=== PATIENT | female | born 2000 | race Hispanic/Latino ===

== ENCOUNTER 2024-08-08 12:01 | Emergency (ER) | payer SELFPAY ==
--- OUTSIDE RECORDS SUMMARY | 2024-08-08 12:05 | XMS REPORT | Continuity of Care Document ---
Author Name Unknown Address [address] [facility] [address] [place] [address] [facility] thconnect Address [address] [facility] [address] [place] [address] Care Team Providers Care Pathology Secretary/Transcriptionist Name Role Phone PCPNO, NO Primary Care Physician Unavailab LINDSEY Gallo Attending Clinician Unavailabl RICARDO Russell Attending Clinician Unavailable YOLIS HARKINS Attending Clinician Unavailable Lacy Marquez DO Attending Clinician [phone] Yolis Harkins MD Attending Clinician [phone] PONCHO BRITT Attending Clinician Unavailable Poncho Britt NP Attending Clinician [phone] LACY MARQUEZ Admitting Clinician Unavailable Payers Payer Name Policy Type Policy Number Effective Date Expirati on Date Source MANAGED MEDICAID GENERIC NON-CONTRACT [id number] Problems Condition Name Condition Details Condition Category Status Onset Date Resolution Date Last Treatment Date Treating Clinician Comments Source Abdominal pain in female Problem Inactiv e [facility] Fever Problem [facility] Gastroesop hageal reflux disease Problem Inactiv e [facility] Nausea Problem Active [facility] Viral pharyngiti s Problem Inactiv e [facility] Allergies, Adverse Reactions, Alerts Allergy Name Allergy Type Status Severity Reaction(s) Onset Date Inactive Date Treating Clinician Comments Source NO KNOWN ALLERGY Allergy to substanc e Active 2023-08 00:00: 00 [facility] NO KNOWN ALLERGY Allergy to substanc e Active Unknown 03-02 00:00: 00 [facility] NO KNOWN ALLERGIE S Drug Class Active [facility] Social History Social Habit Start Date Stop Date Quantity Comments Source Gender identity [facility] Sexual orientation [facility] History of tobacco use [facility] Sex Assigned At 2002 00:00:00 2000 00:00:00 Female [facility] Smoking Status Start Date Stop Date Source Tobacco smoking consumption unknown [facility] Smokes tobacco daily (finding) 2024-07-05 18:41:00 [facility] Medications Ordered Medication Name Filled Medication Name Start Date Stop Date Current Medication? Ordering Clinician Indication Dosage Frequency Signature (SIG) Comments Components Source Mag Hydrox/Alum inum Hyd/Simeth Liq (Mi-Acid 400-400-40 Mg/10 Ml Liq) 355 Ml ORAL.SUSP 2023-08 20:17: 00 No 30mL 5 Min Before Meals & Bedtime [facility] Al Hydroxide/M g Hydroxide (Maalox Liq, Mylanta Liq) 360 Ml SUSP 03-02 18:22: 00 No 30mL Twice A Day as needed for Pain [facility] cefdinir (OMNICEF) capsule 300 mg 09-21 06:30: 00 09-21 06:37 :00 No 300mg 300 mg, Oral, ONCE, 1 dose, On Tue09/21/23 at 0030, CRUZITO
Re ason for Anti-Infec tive: Documented Infection< br>Documen marlee Infection Site: Urine
D uration of Therapy: Other (see Comments) [facility] cefdinir 300 mg capsule 09-21 00:00: 00 Yes [id number] 300mg Take 1 capsule by mouth every 12 (twelve) hours. [facility] ibuprofen 800 mg tablet 09-21 00:00: 00 Yes [id number] 800mg Take 1 tablet by mouth every 8 (eight) hours as needed for Temp > 38.5 C or Pain (scale 4-6). [facility] ciprofloxac in HCl 0.3 % opthalmic drops 03-08 00:00: 00 Yes [id number] 9104 1[drp] Place 1 Drop in left eye in the morning and 1 Drop at noon and 1 Drop in the evening. [facility] Vital Signs Vital Name Observation Time Observation Value Comments S ource Body Temperature 2024-07-05 20:19:00 97.7 [degF] [facility] Heart Rate 2024-07-05 20:19:00 83 /min [facility] Respiratory rate 2024-07-05 20:19:00 18 /min [facility] BP Systolic 2024-07-05 20:19:00 122 mm[Hg] [facility] BP Diastolic 2024-07-05 20:19:00 41 mm[Hg] [facility] Height 2024-07-05 18:41:00 152.144414 cm [facility] Weight 2024-07-05 18:41:00 40.177187 kg [facility] BMI (Body Mass Index) 2024-07-05 18:41:00 17.6 kg/m2 [facility] Body Temperature 2024-03-02 18:59:00 98.0 [degF] [facility] Heart Rate 2024-03-02 18:59:00 95 /min [facility] Respiratory rate 2024-03-02 18:59:00 18 /min [facility] BP Systolic 2024-03-02 18:59:00 98 mm[Hg] [facility] BP Diastolic 2024-03-02 18:59:00 63 mm[Hg] [facility] BMI (Body Mass Index) 2024-03-02 17:23:00 18.4 kg/m2 [facility] Height 2024-03-02 17:18:00 152.446990 cm TE L Weight 2024-03-02 17:18:00 42.525511 kg [facility] Systolic blood pressure 2023-09-21 06:36:00 98 mm[Hg] [facility] Diastolic blood pressure 2023-09-21 06:36:00 61 mm[Hg] [facility] Heart rate 2023-09-21 06:36:00 111 /min [facility] Body temperature 2023-09-21 06:36:00 37.06 Janneth [facility] Respiratory rate 2023-09-21 06:36:00 16 /min [facility] Oxygen saturation in Arterial blood by Pulse oximetry 2023-09-21 06:36:00 98 /min [facility] Body height 2023-09-21 04:27:00 152.4 cm [facility] Body weight 2023-09-21 04:27:00 47.628 kg [facility] BMI 2023-09-21 04:27:00 20.51 kg/m2 [facility] Systolic blood pressure 2023-03-08 15:09:00 97 mm[Hg] [facility] Diastolic blood pressure 2023-03-08 15:09:00 71 mm[Hg] [facility] Heart rate 2023-03-08 15:09:00 66 /min [facility] Body temperature 2023-03-08 15:09:00 36.72 Janneth [facility] Respiratory rate 2023-03-08 15:09:00 18 /min [facility] Body weight 2023-03-08 15:09:00 47.628 kg [facility] Oxygen saturation in Arterial blood by Pulse oximetry 2023-03-08 15:09:00 99 /min [facility] Procedures Procedure Date / Time Performed Performing Clinicia n Source POCT TEST 2023-09-21 05:15:00 Randell Marquez [facility] URINALYSIS 2023-09-21 04:50:00 Lacy Maruqez [facility] RAPID INFLUENZA A/B 2023-09-21 04:50:00 Randell Marquez [facility] COVID-19 (ID NOW RAPID TESTING) 2023-09-21 04:50:00 Lacy Marquez [facility] NOTICE OF PRIVACY PRACTICES 2023-09-21 04:09:42 Doctor Unassigned, Belva [facility] CONSENT/REFUSAL FOR DIAGNOSIS AND TREATMENT 2023-09-21 04:08:40 Doctor Unassigned, Belva [facility] CONSENT/REFUSAL FOR DIAGNOSIS AND TREATMENT 2023-03-08 15:06:52 Doctor Unassigned, Belva [facility] NOTICE OF PRIVACY PRACTICES 2023-03-08 15:06:18 Doctor Unassigned, Belva [facility] Encounters Start Date/Time End Date/Time Encounter Type Admission Type Attending [facility] Care Department Encounter ID Source 2024-07-05 19:08:00 2024-07-05 20:19:00 Emergency ER [facility]Y [facility] [id number] [facility] 2024-07-05 19:08:00 2024-07-05 20:19:00 Departed Emergency Room [facility] LIVE HCIS [id number] [facility] 2024-03-02 17:34:00 2024-03-02 19:03:00 Emergency ER RICARDO GARCIA [id number] [facility] 2024-03-02 17:34:00 2024-03-02 19:03:00 Departed Emergency Room [facility] LIVE HCIS [id number] [facility] 2023-09-20 22:33:00 2023-09-21 00:56:00 Emergency X YOLIS HARKINS [facility] [id number] [facility] 2023-09-20 22:33:00 2023-09-21 00:56:00 Emergency Lacy Marquez [place] [facility] [id number] [facility] 2023-03-08 10:11:00 2023-03-08 12:53:00 Emergency X PONCHO BRITT [facility] ERT [id number] [facility] 2023-03-08 10:11:00 2023-03-08 12:53:00 Emergency Poncho Britt G [facility] [id number] [facility] Results Test Description Test Time Test Comments Results Result Co mments Source [facility] by [id number] 19:11:00* Test Item Value Reference Range Interpretation Comme nts Urine Color (test code = 24935-7) Yellow Yellow [facility] clarity [id number] 19:11:00* Test Item Value Reference Range Interpretation Comme nts Urine Appearance (test code = 74034-4) Cloudy Clear [facility] pH measurement by automated test [id number] 19:11:00* Test Item Value Reference Range Interpretation Comme nts Urine pH (test code = 34570-6) 6.5 5.0-8.[address] [facility] gravity of Urine by Automated test strip 2024-07-05 19:11:00* Test Item Value Reference Range Interpretation Comme nts Urine Specific Bonita (test code = 28042-2) 1.021 1.005-1.[address] [facility] protein measurement by automated test strip (mass/volume)2024-07-05 19:11:00* Test Item Value Reference Range Interpretation Comme nts Urine Protein (test code = 92325-7) Negative Negative [facility] glucose measurement by automated test strip (mass/volume)2024-07-05 19:11:00* Test Item Value Reference Range Interpretation Comme nts Urine Glucose (UA) (test cod e = 96589-9) Negative Negative [facility] ElizabethKetones [Mass/volume] in Urine by Automated test strip 2024-07-05 19:11:00* Test Item Value Reference Range Interpretation Comme nts Urine Ketones (test code = 38229-4) Negative Negative [facility] erythrocytes count by automated test strip (number/volume)2024-07-05 19:11:00* Test Item Value Reference Range Interpretation Comme nts Urine Occult Blood (test code = 19287-0) Non-Hemolyzed Trace Negative [facility] nitrite detection by automated test [id number] 19:11:00* Test Item Value Reference Range Interpretation Comme nts Urine Nitrite (test code = 80141-9) Negative Negative [facility] total bilirubin measurement by automated test strip (mass/volume)2024-07-05 19:11:00* Test Item Value Reference Range Interpretation Comme nts Urine Bilirubin (test code = 02887-1) Negative Negative [facility] Elizabeth[facility]rine urobilinogen measurement by automated test strip (mass/volume)2024-07-05 19:11:00* Test Item Value Reference Range Interpretation Comme nts Urine Urobilinogen (test cod e = 52326-0) 1.0 0.2-1.[address] [facility] leukocytes count by automated test strip (number/volume)2024-07-05 19:11:00* Test Item Value Reference Range Interpretation Comme nts Urine Leukocyte Esterase (te st code = 99325-1) Negative Negative [facility] ElizabethMicroscopic examination of [id number] 19:11:00* Test Item Value Reference Range Interpretation Comme nts Microscopic Urinalysis (T) ( test code = 89409-7) Not Ind [facility] comment [id number] 19:11:00* Test Item Value Reference Range Interpretation Comme nts Urinalysis Comment (test code = 8262-8) * See_Comment [Automated messa ge] The system which generated this result transmitted reference range: *. The reference range was not used to interpret this result as normal/abnormal. MILTON ArmnetaG ur [id number] 19:11:00* Test Item Value Reference Range Interpretation Commnoris goldsmith Urine Test (test c ode = 2106-3) Negative Negative MILTON ArmentaAutomated erythrocyte mean corpuscular hemoglobin (mass per erythrocyte)2024-03-02 17:36:00* Test Item Value Reference Range Interpretation Commnoris goldsmith Mean Corpuscular Hemoglobin (test code = 785-6) 30.6 27.0-33.0 TELAutomated erythrocyte mean corpuscular hemoglobin concentration measurement (mass/[id number] 17:36:00* Test Item Value Reference Range Interpretation Commnoris [facility] Mean Corpuscular Hemoglobin Concent (test code = 786-4) 34.1 33.0-37.0 TELAutomated erythrocyte distribution width [id number] 17:36:00* Test Item Value Reference Range Interpretation Commnoris [facility] Red Cell Distribution Width (test code = 788-0) 11.9 10.7-14.5 TELAutomated blood platelet count (count/volume)2024-03-02 17:36:00* Test Item Value Reference Range Interpretation Commnoris [facility] Platelet Count (test code = 777-3) 246 150-450 TELAutomated blood platelet mean volume nnbbvrqgluw7123-18-06 17:36:00* Test Item Value Reference Range Interpretation Commnoris [facility] Mean Platelet Volume (test c ode = 19914-1) 10.1 8.5-12.1 TELAutomated blood neutrophil count as percentage of total cymjmywtfi1768-59-00 17:36:00* Test Item Value Reference Range Interpretation Commnoris nts Neutrophils (%) (Auto) (test code = 770-8) 77 47-75 TELAutomated blood immature granulocyte count as percentage of total leukocytes 2024-03-02 17:36:00* Test Item Value Reference Range Interpretation Comme [facility] Immature Granulocyte # (Auto ) (test code = 39165-9) 0.0 0.0-0.0 TELAutomated blood lymphocyte count as percentage of total swzasinbda5802-07-56 17:36:00* Test Item Value Reference Range Interpretation Comme nts Lymphocytes (%) (Auto) (test code = 736-9) 11 25-44 TELAutomated blood monocyte count as percentage of total abxvpxkmnz6943-35-14 17:36:00* Test Item Value Reference Range Interpretation Comme nts Monocytes (%) (Auto) (test c ode = 5905-5) 11 3-10 TELAutomated blood eosinophil count as percentage of total [id number] 17:36:00* Test Item Value Reference Range Interpretation Comme nts Eosinophils (%) (Auto) (test code = 713-8) 1 0-7 TELAutomated blood basophil count as percentage of total yduuyiogts1920-19-43 17:36:00* Test Item Value Reference Range Interpretation Comme nts Basophils (%) (Auto) (test c ode = 706-2) 0 0-1 TELAutomated blood nucleated erythrocyte count as percentage of total leukocytes 2024-03-02 17:36:00* Test Item Value Reference Range Interpretation Comme nts Nucleated Red Blood Cells % (test code = 85869-7) 0.0 0-0.2 TELAutomated blood neutrophil count (number/volume)2024-03-02 17:36:00* Test Item Value Reference Range Interpretation Comme nts Neutrophils # (Auto) (test c ode = 751-8) 5.7 1.3-6.7 TELAutomated blood lymphocyte count (number/volume)2024-03-02 17:36:00* Test Item Value Reference Range Interpretation Comme nts Lymphocytes # (Auto) (test c ode = 731-0) 0.8 1.4-4.1 TELBlood monocytes automated count (number/volume)2024-03-02 17:36:00* Test Item Value Reference Range Interpretation Comme nts Monocytes # (Auto) (test code = 742-7) 0.8 0-1.3 TELAutomated blood eosinophil [id number] 17:36:00* Test Item Value Reference Range Interpretation Comme nts Eosinophils # (Auto) (test c ode = 711-2) 0.0 0-0.8 TELAutomated blood basophil count (number/volume)2024-03-02 17:36:00* Test Item Value Reference Range Interpretation Comme nts Basophils # (Auto) (test code = 704-7) 0.0 0-0.1 TELnRBC # Bld [id number] 17:36:00* Test Item Value Reference Range Interpretation Comme nts Nucleated Red Blood Cells # (test code = 771-6) 0.00 0-0.01 TELService Cmnt 04 [id number] 17:36:00* Test Item Value Reference Range Interpretation Comme nts Manual Differential (test co de = 8265-1) Not Ind TELSodium KhvGr-sOgl0875-59-26 17:36:00* Test Item Value Reference Range Interpretation Comme nts Sodium Level (test code = 2951-2) 137 136-145 TELAutomated blood leukocyte count (number/volume)2024-03-02 17:36:00* Test Item Value Reference Range Interpretation Comme nts White Blood Count (test code = 6690-2) 7.4 4.5-11.5 TELSerum or plasma potassium measurement (moles/volume)2024-03-02 17:36:00* Test Item Value Reference Range Interpretation Comme nts Potassium Level (test code = 2823-3) 3.7 3.5-5.1 TELSerum or plasma chloride measurement (moles/volume)2024-03-02 17:36:00* Test Item Value Reference Range Interpretation Comme nts Chloride Level (test code = 2075-0) 101 98-107 TELSerum or plasma total carbon dioxide measurement (moles/volume)2024-03-02 17:36:00* Test Item Value Reference Range Interpretation Comme nts Carbon Dioxide Level (test c ode = 2027-9) 26 22-29 TELSerum or plasma anion gap determination (moles/volume)2024-03-02 17:36:00* Test Item Value Reference Range Interpretation Comme nts Anion Gap (test code = 22259-1) 14 8-18 TELSerum or plasma urea nitrogen measurement (mass/volume)2024-03-02 17:36:00* Test Item Value Reference Range Interpretation Comme nts Blood Urea Nitrogen (test co de = 3094-0) 15 7-19 TELSerum or plasma creatinine measurement (mass/volume)2024-03-02 17:36:00* Test Item Value Reference Range Interpretation Comme nts Creatinine (test code = 2160-0) 0.8 0.6-1.1 TELGFR/BSA.pred SerPl [id number]-QbUJkx8935-04-26 17:36:00* Test Item Value Reference Range Interpretation Comme nts Estimat Glomerular Filtratio n Rate (test code = 84980-3) 96 90-142 TELSerum or plasma glucose measurement (mass/volume)2024-03-02 17:36:00* Test Item Value Reference Range Interpretation Comme nts Glucose Level (test code = 2345-7) 112 60-100 TELSerum or plasma calcium measurement (mass/volume)2024-03-02 17:36:00* Test Item Value Reference Range Interpretation Comme nts Calcium Level (test code = 17053-7) 9.7 8.4-10.2 TELSerum or plasma total bilirubin measurement (mass/volume)2024-03-02 17:36:00 * Test Item Value Reference Range Interpretation Comme nts Total Bilirubin (test code = 1975-2) 0.6 0.2-1.2 TELBlood erythrocytes automated count (number/volume)2024-03-02 17:36:00* Test Item Value Reference Range Interpretation Comme nts Red Blood Count (test code = 789-8) 4.28 3.8-5.1 TELSerum or plasma aspartate aminotransferase measurement (enzymatic activity/volume)2024-03-02 17:36:00* Test Item Value Reference Range Interpretation Comme nts Aspartate Amino Transf (AST/ SGOT) (test code = 1920-8) 17 5-34 TELSerum or plasma alanine aminotransferase measurement (enzymatic activity/volume)2024-03-02 17:36:00* Test Item Value Reference Range Interpretation Comme nts Alanine Aminotransferase (AL T/SGPT) (test code = 1742-6) 11 0-55 TELSerum or plasma protein measurement (mass/volume)2024-03-02 17:36:00* Test Item Value Reference Range Interpretation Comme nts Total Protein (test code = 2885-2) 7.9 6.4-8.3 TELSerum or plasma albumin measurement (mass/volume)2024-03-02 17:36:00* Test Item Value Reference Range Interpretation Comme nts Albumin (test code = 1751-7) 4.8 3.5-5.0 TELSerum or plasma alkaline phosphatase measurement (enzymatic activity/volume) 2024-03-02 17:36:00* Test Item Value Reference Range Interpretation Comme nts Alkaline Phosphatase (test c ode = 6768-6) 48 40-150 TELSerum or plasma beta choriogonadotropin ( test) [id number] 17:36:00* Test Item Value Reference Range Interpretation Comme nts Serum Test, Qualit ative (test code = 2110-5) Negative Negative TELBlood hemoglobin measurement (mass/volume)2024-03-02 17:36:00* Test Item Value Reference Range Interpretation Comme nts Hemoglobin (test code = 718-7) 13.1 12.0-15.2 TELAutomated blood hematocrit (volume fraction)2024-03-02 17:36:00* Test Item Value Reference Range Interpretation Comme nts Hematocrit (test code = 4544-3) 38.4 34.0-45.5 TELAutomated erythrocyte mean corpuscular volume (MCV) jkxuyyhpwns4281-56-70 17:36:00* Test Item Value Reference Range Interpretation Comme nts Mean Corpuscular Volume (arthur t code = 787-2) 90 80-94 TELUrinalysis specimen collection [id number] 17:30:00* Test Item Value Reference Range Interpretation Comme nts Urine Source (test code = 84888-8) URINE TELColor [id number] 17:30:00* Test Item Value Reference Range Interpretation Comme nts Urine Color (test code = 5778-6) Yellow Yel-Ana * TELUrine clarity aiznevaqhzyip2104-48-77 17:30:00* Test Item Value Reference Range Interpretation Comme nts Urine Appearance (test code = 85122-5) Clear Clear * TELUrine pH measurement by automated test [id number] 17:30:00* Test Item Value Reference Range Interpretation Comme nts Urine pH (test code = 99177-5) 9.0 5.0-8.0 TELSpecific gravity of Urine by Automated test [id number] 17:30:00* Test Item Value Reference Range Interpretation Comme nts Urine Specific Bonita (test code = 19684-8) 1.015 1.005-1.030 TELUrine protein measurement by automated test strip (mass/volume)2024-03-02 17:30:00* Test Item Value Reference Range Interpretation Comme nts Urine Protein (test code = 42127-3) Negative Negative * TELUrine glucose measurement by automated test strip (mass/volume)2024-03-02 17:30:00* Test Item Value Reference Range Interpretation Comme nts Urine Glucose (UA) (test cod e = 64254-0) Negative Negative * TELKetones [Mass/volume] in Urine by Automated test [id number] 17:30:00* Test Item Value Reference Range Interpretation Comme nts Urine Ketones (test code = 64845-4) 5 Negative * TELUrine erythrocytes count by automated test strip (number/volume)2024-03-02 17:30:00* Test Item Value Reference Range Interpretation Comme nts Urine Occult Blood (test cod e = 55271-8) Negative Negative * TELUrine nitrite detection by automated test [id number] 17:30:00* Test Item Value Reference Range Interpretation Comme nts Urine Nitrite (test code = 22531-0) Negative Negative TELUrine total bilirubin measurement by automated test strip (mass/volume) 2024-03-02 17:30:00* Test Item Value Reference Range Interpretation Comme nts Urine Bilirubin (test code = 77803-6) Negative Negative TELUrine urobilinogen measurement by automated test strip (mass/volume) 2024-03-02 17:30:00* Test Item Value Reference Range Interpretation Comme nts Urine Urobilinogen (test cod e = 78090-4) Negative 0.0-1.0 TELUrine leukocytes count by automated test strip (number/volume)2024-03-02 17:30:00* Test Item Value Reference Range Interpretation Comme nts Urine Leukocyte Esterase (te st code = 83240-0) Negative Negative TELUrine sediment erythrocyte count by microscopy (number/high power field) 2024-03-02 17:30:00* Test Item Value Reference Range Interpretation Comme nts Urine RBC (test code = 70210-3) 3-5 0-5 TELUrine sediment leukocyte count by microscopy (number/high power field) 2024-03-02 17:30:00* Test Item Value Reference Range Interpretation Comme nts Urine WBC (test code = 5821-4) 0-2 0-5 TELUrine sediment epithelial cell count by microscopy (number/high power field) 2024-03-02 17:30:00* Test Item Value Reference Range Interpretation Comme nts Urine Epithelial Cells (test code = 5787-7) Occasional None/Occ TELUrine sediment bacteria count by microscopy (number/high power field) 2024-03-02 17:30:00* Test Item Value Reference Range Interpretation Comme nts Urine Bacteria (test code = 5769-5) None Seen None Seen TELUrine sediment hyaline cast count by microscopy (number/low power field) 2024-03-02 17:30:00* Test Item Value Reference Range Interpretation Comme nts Urine Hyaline Casts (test co de = 5796-8) 0-2 0-2 TELService comment 17:30:00* Test Item Value Reference Range Interpretation Comme nts Urinalysis Comment (test code = 8262-8) * See_Comment [Automated Fantasteca ge] The system which generated this result transmitted reference range: *. The reference range was not used to interpret this result as normal/abnormal. TELService comment 17:30:00* Test Item Value Reference Range Interpretation Comme nts Urine Culture Indicated (arthur t code = 8264-4) Not Ind TELPOCT [id number] 05:15:00* Test Item Value Reference Range Interpretation Comme nts POCT PREG (test code = 1605) Negative On board controls acceptable with C Line (test code = 3574) Yes POCT PREG LOT # (test code = 3575) [id number] POCT PREG TEST DATE ( test code = 3576) 11/10/2024 Lab Interpretation (test cod e = 33492-6) Normal [facility]
--- NOTE | 2024-08-08 14:22 | EDPHYS ---
Physician Documentation [facility] Name: Althea Causey Age: 24 yrs Sex: Female : 2000 Arrival Date: 08/08/2024 Time: 12:01 Bed 9 Private MD: ED Physician Shaggy Pepe HPI: 08/08 12:28 This 24 yrs old Female presents to ER via Ambulatory with complaints of Breast bo1 Lump. 12:28 Sig other noticed and felt a "lump/mass" to the right breast 2 days ago. It's painful bo1 per the pt and might be a bit smaller today. . Onset: The symptoms/episode began/occurred suddenly. No known trauma or cause. Unknown if ... they have been trying for 1.5 weeks. Historical: - Allergies: 12:17 No Known Allergies; ll1 - Home Meds: 12:17 None [Active]; ll1 - PMHx: 12:17 None; ll1 - PSHx: 12:17 hernia repair; ll1 - Immunization history:: Adult Immunizations up to date. - Infectious Disease History:: Denies. - Social history:: Smoking status: Reported history of juuling and/or vaping. ROS: 13:01 Constitutional: As per HPI kb Exam: 13:01 Constitutional: This is a well developed, well nourished patient who is awake, alert, kb and in no acute distress. Head/Face: Normocephalic, atraumatic. ENT: Moist Mucous membranes Cardiovascular: Regular rate Respiratory: Respirations even and unlabored. No increased work of breathing. Talking in full sentences Skin: Warm, dry with normal turgor. Normal color. MS/ Extremity: Pulses equal, no cyanosis. Neurovascular intact. Full, normal range of motion. Neuro: Awake and alert, GCS 15, oriented to person, place, time, and situation. 13:01 Chest/axilla: Breasts: mass(es), that is small, in the right breast, that is non-tender, that is fixed, under areola at 6 o'clock, Vital Signs: 12:16 BP 111 / 71; Pulse 84; Resp 15; Temp 97.6; Pulse Ox 100% ; Weight 43.54 kg; Height 5 ll1 ft. 0 in. ; Pain 0/10; 13:52 BP 117 / 72; Pulse 74; Resp 17; Pulse Ox 99% on R/A; rs5 14:40 BP 125 / 70; Pulse 77; Resp 17; Pulse Ox 99% on R/A; rs5 12:16 Body Mass Index 18.75 (43.54 kg, 152.4 cm) ll1 12:16 Pain Scale: Adult ll1 MDM: 12:22 Medical Screening Exam initiated bo1 13:03 Data reviewed: vital signs, nurses notes. kb 13:03 Differential diagnosis: abscess, malignancy, cyst. Historians other than the Patient: kb Spouse/Significant Other: . 14:20 Counseling: I had a detailed discussion with the patient and/or guardian regarding the kb historical points, exam findings, and any diagnostic results supporting the discharge/admit diagnosis, lab results, the need for outpatient follow up, an OB/Gyne specialist, to return to the emergency department if symptoms worsen or persist or if there are any questions or concerns that arise at home. ED course: Pt educated to follow up with [facility] for further evaluation/mammogram if needed. 08/08 12:31 Order name: Test, Serum; Complete Time: 14:20 bo1 Administered Medications: No medications were administered Disposition Summary: 08/08/24 14:21 Discharge Ordered Notes: Location: Home kb Condition: Stable kb Diagnosis - Localized swelling, mass and lump, unspecified - right breast kb Followup: kb - With: Emergency Department - When: As needed - Reason: Worsening of condition Followup: kb - With: Private Physician - When: 2 - 3 days - Reason: Recheck today's complaints, Continuance of care, Re-evaluation by your physician Discharge Instructions: - Discharge Summary Sheet kb - Breast Cyst kb - Breast Cancer, Female kb - Breast Biopsy, [id number] kb Forms: - Medication Reconciliation Form kb - Antibiotic Education kb - Prescription Opioid Use kb - Patient Portal Instructions kb - Leadership Thank You Letter kb Signatures: Dispatcher [employer] Fany Conrad FNP-C FNP-Ckb Lewis, Lynsay, RN RN ll1 OeiShaggy MD MD bo1
--- NOTE | 2024-08-08 14:22 | ER ---
Nurse's Notes [facility] Name: Althae Causey Age: 24 yrs Sex: Female : 2000 Arrival Date: 08/08/2024 Time: 12:01 Bed 9 Private MD: Diagnosis: Localized swelling, mass and lump, unspecified-right breast Presentation: 08/08 12:16 Chief complaint: Patient states: Noticed a lump in her R breast yesterday. Painful ll1 yesterday, none today. No fever. Coronavirus screen: Client denies travel out of the [place] in the last 14 days. At this time, the client does not indicate any symptoms associated with coronavirus-19. Ebola Screen: Patient denies travel to an Ebola-affected area in the 21 days before illness onset. Initial Sepsis Screen: Does the patient meet any 2 criteria? No. Patient's initial sepsis screen is negative. Does the patient have a suspected source of infection? No. Patient's initial sepsis screen is negative. Risk Assessment: Do you want to hurt yourself or someone else? Patient reports no desire to harm self or others. Onset of symptoms was August 07, 2024. 12:16 Method Of Arrival: Ambulatory ll1 12:16 Acuity: RAMON 4 ll1 Triage Assessment: 12:20 General: Appears uncomfortable, Behavior is calm, cooperative, appropriate for age. ll1 Pain: Denies pain. Derm: Reports felt a lump in her R breast yesterday. Historical: - Allergies: 12:17 No Known Allergies; ll1 - Home Meds: 12:17 None [Active]; ll1 - PMHx: 12:17 None; ll1 - PSHx: 12:17 hernia repair; ll1 - Immunization history:: Adult Immunizations up to date. - Infectious Disease History:: Denies. - Social history:: Smoking status: Reported history of juuling and/or vaping. Screenin:12 [facility] ED Fall Risk Assessment (Adult) History of falling in the last 3 months, rs5 including since admission No falls in past 3 months (0 pts) Confusion or Disorientation No (0 pts) Intoxicated or Sedated No (0 pts) Impaired Gait No (0 pts) Mobility Assist Device Used No (0 pt) Altered Elimination No (0 pt) Score/Fall Risk Level 0 - 2 = Low Risk Oriented to surroundings, Maintained a safe environment. Abuse screen: Denies threats or abuse. Nutritional screening: No deficits noted. Tuberculosis screening: No symptoms or risk factors identified. Assessment: 12:11 General: Appears in no apparent distress. comfortable, Behavior is calm, cooperative. rs5 Pain: Denies pain. Neuro: Level of Consciousness is awake, alert, obeys commands, Oriented to person, place, time, situation. Cardiovascular: Patient's skin is warm and dry. Respiratory: Airway is patent Respiratory effort is even, unlabored, Respiratory pattern is regular, symmetrical. GI: Abdomen is round non-distended, Abd is soft and non tender X 4 quads. : No signs and/or symptoms were reported regarding the genitourinary system. EENT: No signs and/or symptoms were reported regarding the EENT system. Derm: Skin is intact, Skin is pink, warm \T\ dry. Musculoskeletal: Range of motion: intact in all extremities. 13:22 Reassessment: Patient and/or family updated on plan of care and expected duration. Pain rs5 level reassessed. Patient is alert, oriented x 3, equal unlabored respirations, skin warm/dry/pink. 14:22 Reassessment: Patient and/or family updated on plan of care and expected duration. Pain rs5 level reassessed. Patient is alert, oriented x 3, equal unlabored respirations, skin warm/dry/pink. Vital Signs: 12:16 BP 111 / 71; Pulse 84; Resp 15; Temp 97.6; Pulse Ox 100% ; Weight 43.54 kg; Height 5 ll1 ft. 0 in. ; Pain 0/10; 13:52 BP 117 / 72; Pulse 74; Resp 17; Pulse Ox 99% on R/A; rs5 14:40 BP 125 / 70; Pulse 77; Resp 17; Pulse Ox 99% on R/A; rs5 12:16 Body Mass Index 18.75 (43.54 kg, 152.4 cm) ll1 12:16 Pain Scale: Adult ll1 ED Course: 12:05 Patient arrived in ED. mr 12:12 Patient has correct armband on for positive identification. Placed in gown. Bed in low rs5 position. Call light in reach. Side rails up X2. 12:12 No provider procedures requiring assistance completed. rs5 12:15 Inserted saline lock: 20 gauge in right antecubital area, using aseptic technique. rs5 Blood collected. Flushed with 10 mL NS. 12:17 Triage completed. ll1 12:18 Arm band placed on Patient placed in an exam room, on a stretcher. ll1 12:22 Shaggy Pepe MD is Attending Physician. bo1 13:00 Fany Kitchen FNP-C is [facility] kb 13:23 Wilfrido Valero, RN is Primary Nurse. rs5 14:40 Provided Education on: discharge instructions . rs5 14:48 IV discontinued, intact, bleeding controlled, No redness/swelling at site. Pressure rs5 dressing applied. Administered Medications: No medications were administered Medication: 13:52 VIS not applicable for this client. rs5 Outcome: 14:21 Discharge ordered by . kb 14:48 Discharged to home ambulatory, rs5 14:48 Condition: stable rs5 14:48 Discharge instructions given to patient, family, Instructed on discharge instructions, follow up and referral plans. Demonstrated understanding of instructions, follow-up care, 14:49 Patient left the ED. aa4 Signatures: Fany Kitchen FNP-C FNP-Abril Nathanael Adrienne, Reg Reg mr Jama Dorys aa4 Veronica Zamarripa RN RN ll1 Wilfrido Valero, MABEL RN rs5 Shaggy Pepe MD MD bo1
[2024-08-08 15:40] VITALS: TEMP 97.6
[2024-08-08 15:42] VITALS: BP 117/72; O2SAT 99
== END 2024-08-08 14:49 | disposition home or self-care (01) ==
LOC: ER 12:01
DX: R22.9 Localized swelling, mass and lump, unspecified (principal)
CPT/HCPCS: 36415; 84703; 99284